=== PATIENT | female | born 1960 | race Caucasian/White ===

== ENCOUNTER 2020-05-29 20:29 | Emergency (ER) | payer MEDICARE ==
[2020-05-29] MEDS ORDERED: ACETAMINOPHEN 325 MG TABLET PO ONE (21:15)
--- NOTE | 2020-05-29 21:15 | ER Document Report ---
ED Medical Screen (RME) - General Chief Complaint: Head Injury Stated Complaint: FOLLOW UP/CAT SCAN Time Seen by Provider: 05/29/20 21:02 Mode of Arrival: Ambulatory Information source: Patient Notes: HPI; 60-year-old female sent to emergency room from [facility] urgent care. Patient presents with complaints of headache and neck pain for the past 2 days patient states. Patient states that she fell 2-3 steps off a ladder hitting her head on a granite counter top and then injured her left shoulder as she fell. Patient is also complaining of pain to her right humerus. States that a week ago there headboard fell hitting her on the right side of her head and her right arm. Patient has a history of chronic pain and has been taking her hydrocodone without relief. She denies any loss conscious. Denies any nausea or vomiting. Also concerned about her elevated blood pressure. No history of hypertension PE: Alert and oriented x3 PERRLA, EOMI. negative for raccoon eyes, negative for carmona signs. Nontender to the cervical spine. There is painful range of motion with lateral movement to the neck. Lungs: Clear to auscultation without rales, rhonchi, wheezes. Heart: Regular rate rhythm without murmurs, rubs, gallops I have greeted and performed a rapid initial assessment of this patient. A comprehensive ED assessment and evaluation of the patient, analysis of test results and completion of the medical decision making process will be conducted by additional ED providers. I have specifically instructed the patient or family members with the patient to immediately return to any nursing staff should anything change in the patient's condition or with their chief complaint. TRAVEL OUTSIDE OF THE [place] IN LAST 30 DAYS: No - Related Data Allergies/Adverse Reactions: amoxicillin [From Augmentin] Adverse Reaction (Verified 05/29/20 21:03) clavulanic acid [From Augmentin] Adverse Reaction (Verified 05/29/20 21:03) Past Medical History - Social History Frequency of alcohol use: None Drug Abuse: Prescription drugs Physical Exam - Vital signs Vitals: Temp Pulse Resp BP Pulse Ox 97.6 F 78 16 171/81 H 100 05/29/20 20:37 05/29/20 20:37 05/29/20 20:37 05/29/20 20:37 05/29/20 20:37 Course - Vital Signs Vital signs: Temp Pulse Resp BP Pulse Ox 97.6 F 78 16 171/81 H 100 05/29/20 20:37 05/29/20 20:37 05/29/20 20:37 05/29/20 20:37 05/29/20 20:37
--- NOTE | 2020-05-29 21:55 | RADIOLOGY REPORT (SQ) ---
EXAM: CT HEAD WITHOUT (accession [id number]), CT CERVICAL SPINE WITHOUT (accession [id number]) CLINICAL INDICATION: 60-year-old female status post trauma. COMPARISON: None. TECHNIQUE: CT brain without contrast. This exam was performed according to our departmental dose optimization program which includes use of automated exposure control, adjustment of the mA and/or kV according to patient size and/or use of iterative reconstruction technique. FINDINGS: The ventricles, sulci, and cisterns are symmetric and unremarkable. The olivas-white matter differentiation is preserved. There is no mass effect, midline shift, intra- or extra-axial fluid collection/acute hemorrhage. The osseous structures are unremarkable. The paranasal sinuses reveal large polyp or retention cyst in the RIGHT axillary sinus otherwise the remaining paranasal sinuses are clear. The bilateral mastoid air cells are partially sclerosed and partially opacified, finding which may be congenital, however may reflect sequela of infectious or inflammatory process. There appears to be at least partial opacification of the superior bilateral middle ear cavity. IMPRESSION: 1. No acute intracranial abnormalities. 2. Appearance of chronic opacification of the bilateral mastoid air cells with age indeterminate fluid within the superior bilateral middle ear cavity, of uncertain etiology/chronicity. TECHNIQUE: Cervical spine CT was performed without contrast. Multiplanar reformatted images were provided. This exam was performed according to our departmental dose optimization program which includes use of automated exposure control, adjustment of the mA and/or kV according to patient size and/or use of iterative reconstruction technique. COMPARISON: None. FINDINGS: There is normal alignment of the cervical spine without fracture or subluxation. The facets are normal in alignment bilaterally. The posterior elements including the spinous processes are intact. Reversal of the cervical spine which may be secondary to positioning for the examination. Morphology and attenuation of the vertebral bodies and intervertebral disk spaces is compatible with multilevel degenerative change. Multilevel posterior osseous spurring results in mild neuroforaminal narrowing throughout the cervical spine. Posterior osseous spurring at the C3-4 C5-6 and C6-7 vertebral levels results in moderate to severe neuroforaminal narrowing and at least mild central spinal canal narrowing of C5-6 and C6-7. The pre-and paravertebral soft tissues are within normal limits. IMPRESSION: 1. Straightening of the cervical spine which may be secondary to positioning for the examination versus spasm. 2. Multilevel degenerative change without fracture or acute subluxation.
--- NOTE | 2020-05-29 21:56 | RADIOLOGY REPORT (SQ) ---
EXAM DESCRIPTION: XR HUMERUS BILATERAL COMPLETED DATE/TME: 05/29/2020 21:38 CLINICAL HISTORY: 60 years, Female, injury COMPARISON: None. TECHNIQUE: Two views of each humerus. FINDINGS: No evidence for fracture dislocation. No suspicious soft tissue abnormality. IMPRESSION: Negative bilaterally humerus radiographic study
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
--- NOTE | 2020-05-29 23:28 | RADIOLOGY REPORT (SQ) ---
EXAM DESCRIPTION: T SPINE AP/LAT 05/29/2020 10:36 PM RE[employer] CLINICAL HISTORY: 60 years Female, Continued pain after fall days ago; ; COMPARISON: None. FINDINGS: 2 views were obtained. Thoracic vertebral body heights and alignments appear maintained. No definite acute fracture or malalignment. However, there is mild multilevel thoracic spondylosis, designated by intervertebral space narrowing and hypertrophic endplate spurring. Visualized lungs are clear. IMPRESSION: Mild multilevel thoracic spondylosis. No underlying acute osseous anomaly.
--- NOTE | 2020-05-29 23:29 | RADIOLOGY REPORT (SQ) ---
Lumbar spine x-ray five views on 05/29/2020 at 10:59 PM CLINICAL INDICATION: Continued low back pain after recent fall COMPARISON: None FINDINGS: The patient is status post posterior pedicle screw and sherman fixation from L4 through S1 with disc spacers at L4-5 and L5-S1. There is slight rightward curvature of the lumbar spine. The patient is status post L4 and L5 laminectomies. Lumbar spine is otherwise well aligned. No hardware complication is noted. There are no fractures. No other bony abnormality is noted. IMPRESSION: No acute abnormality.
[2020-05-29 23:42] VITALS: BP 149/71
== END 2020-05-29 23:44 | disposition home or self-care (01) ==
LOC: ER 20:29
DX: S16.1XXA Strain of muscle, fascia and tendon at neck level, initial encounter (principal); S09.90XA Unspecified injury of head, initial encounter; S49.92XA Unspecified injury of left shoulder and upper arm, initial encounter; S49.91XA Unspecified injury of right shoulder and upper arm, initial encounter; M54.42 Lumbago with sciatica, left side; M54.6 Pain in thoracic spine; W17.89XA Other fall from one level to another, initial encounter; G89.29 Other chronic pain; R03.0 Elevated blood-pressure reading, without diagnosis of hypertension; Z79.891 Long term (current) use of opiate analgesic; E78.00 Pure hypercholesterolemia, unspecified
CPT/HCPCS: 99284; 72110; 72070; 73060; 70450; 72125; A9270